=== PATIENT | female | born 1945 | race Caucasian/White ===

== ENCOUNTER 2016-08-22 09:11 | Inpatient (IN) | payer MEDICARE ==
[~2016-08-22 09:11] MED LIST: AMIODARONE HCL200 M1 PO; ARIMIDEX1 M1 PO; ASPIRIN81 M1 PO; CALCIUM CITRAT1 EA25 PO; CLARITIN10 M6 PO; COMBIVENT RESPIM4 G1 INH; COUMADIN3 M1 PO; COUMADIN5 M2 PO; DELTASONE20 MG PO; DOCUSATE SODIU100 M2 PO; FEOSOL325 M1 PO; FISH OIL 11000 MG/CA PO; GLUCOSAMINE CH1 EAC8 PO; HYDROCHLOROTHIA25 M1 PO; HYDROCODONE-CHLO5 M1 PO; LASIX40 M1 PO; LOPRESSOR50 M1 PO; MUCINEX DM ER1 EAC1 PO; MYSOLINE50 M3 PO; NIASPAN500 M1 PO; NYSTATIN100000 UNI SSW; OS-CAL 500+D31 EAC1 PO; PERPHEN AMITRIP PO; PRINIVIL10 M1 PO; PROMETHAZI6.25 MG/3 PO; ROBITUSSIN NIG118 ML PO; SINGULAIR10 M1 PO; SYNTHROID75 MC1 PO; VITAMIN B-12250 MC2 PO; VITAMIN C1000 M1 PO; VITAMIN D35000 UNI2 PO; WELLBUTRIN SR150 M2 PO; ZYLOPRIM100 M1 PO
[2016-08-22] MEDS ORDERED: COUMADIN4 M1 PO (10:27)
[2016-08-22] MEDS ORDERED: ASPIRIN81 M1 PO (10:30)
[2016-08-22] MEDS ORDERED: LACTASE PO (10:31)
[2016-08-22] MEDS ORDERED: MILK OF MAGNESIA PO (10:37)
[2016-08-22] MEDS ORDERED: TYLENOL EXTRA500 M1 PO (10:40)
[2016-08-22] MEDS ORDERED: POTASSIUM CHLO10 ME2 PO (10:40)
[2016-08-22] MEDS ORDERED: TYLENOL325 M2 PO (10:40)
[2016-08-22] MEDS ORDERED: ULTRAM50 M1 PO (10:41)
[2016-08-22 12:32] LABS: C-REACTIVE PROTEIN 1.6 mg/dl (0-0.9)
[2016-08-22 12:45] LABS: PROCALCITONIN 0.07 ng/ml (0.05-0.09)
[2016-08-23 05:05] LABS: BASO % 0.3 % (0-2); EOS % 3.7 % (0-7); EOSINOPHIL ABSOLUTE COUNT 0.2 tho/cmm (0.0-0.7); HCT-HEMATOCRIT 29.9 % (34.0-49.0); HGB-HEMOGLOBIN 9.8 gm/dl (12.0-15.5); IMMATURE GRANULOCYTES ABSOLUTE 0.02 tho/cmm (0-0.03); IMMATURE GRANULOCYTES PERCENT 0.3 % (0-0.3); LYMPH % 14.1 % (20-45); LYMPH ABSOLUTE COUNT 0.9 tho/cmm (0.8-4.5); MCHC MEAN CORPUSCULAR HGB CONC 32.8 % (32.0-36.0); MCV (MEAN CELL VOLUME) 103.8 fl (82.0-96.0); MEAN PLATELET VOLUME 9.9 cmc (9.4-12.4); MONO % 9.3 % (0-12); MONOCYTE ABSOLUTE COUNT 0.6 tho/cmm (0.0-1.2); NEUTROPHIL ABSOLUTE COUNT 4.4 tho/cmm (1.6-8.0); NEUTROPHIL-AUTOMATED 4.4 tho/cmm (1.6-8.0); NEUTROPHILS % 72.3 % (40-80); PLATELET COUNT 158 tho/cmm (150-450); RED BLOOD COUNT 2.88 mil/cmm (4.00-5.20); RED CELL DISTRIBUTION WIDTH 16.4 % (12.4-16.4)
[2016-08-23 05:14] LABS: PROTHROMBIN TIME 23.5 SECONDS (9.0-13.6)
[2016-08-23 05:17] LABS: ANION GAP 10 mmol/L (0-20); BLOOD UREA NITROGEN 51 mg/dl (6-24); CALCIUM 8.5 mg/dl (8.5-10.5); CARBON DIOXIDE-VENOUS 28 mmol/L (22-32); CHLORIDE 101 mmol/l (96-110); CREATININE 1.91 mg/dl (0.50-1.10); GLUCOSE 78 mg/dL (70-110); POTASSIUM 3.3 mmol/L (3.7-5.1); SODIUM 136 mmol/L (135-145); eGFR VALUE FOR BLACK 30 mL/Min
[2016-08-24 03:57] LABS: BASO % 0.8 % (0-2); BASO ABSOLUTE COUNT 0.1 tho/cmm (0.0-0.2); EOS % 4.4 % (0-7); EOSINOPHIL ABSOLUTE COUNT 0.3 tho/cmm (0.0-0.7); HCT-HEMATOCRIT 30.2 % (34.0-49.0); HGB-HEMOGLOBIN 9.6 gm/dl (12.0-15.5); IMMATURE GRANULOCYTES ABSOLUTE 0.03 tho/cmm (0-0.03); IMMATURE GRANULOCYTES PERCENT 0.5 % (0-0.3); LYMPH % 14.8 % (20-45); LYMPH ABSOLUTE COUNT 0.9 tho/cmm (0.8-4.5); MCH (MEAN CORPUSCULAR HGB) 33.4 pg (28.0-32.0); MCHC MEAN CORPUSCULAR HGB CONC 31.8 % (32.0-36.0); MCV (MEAN CELL VOLUME) 105.2 fl (82.0-96.0); MONO % 10.5 % (0-12); MONOCYTE ABSOLUTE COUNT 0.6 tho/cmm (0.0-1.2); NEUTROPHIL ABSOLUTE COUNT 4.2 tho/cmm (1.6-8.0); NEUTROPHIL-AUTOMATED 4.2 tho/cmm (1.6-8.0); PLATELET COUNT 161 tho/cmm (150-450); RED BLOOD COUNT 2.87 mil/cmm (4.00-5.20); RED CELL DISTRIBUTION WIDTH 16.6 % (12.4-16.4); WHITE BLOOD COUNT 6.1 tho/cmm (4.0-10.0)
[2016-08-24 04:24] LABS: BLOOD UREA NITROGEN 57 mg/dl (6-24); CALCIUM 8.7 mg/dl (8.5-10.5); CARBON DIOXIDE-VENOUS 25 mmol/L (22-32); CHLORIDE 103 mmol/l (96-110); GLUCOSE 94 mg/dL (70-110); SODIUM 136 mmol/L (135-145); eGFR VALUE FOR BLACK 22 mL/Min
[2016-08-24 04:40] LABS: INR 3.3 INR (0.9-1.1); PROTHROMBIN TIME 39.4 SECONDS (9.0-13.6)
[2016-08-24 04:52] LABS: ANION GAP 12 mmol/L (0-20); CREATININE 2.48 mg/dl (0.50-1.10); POTASSIUM 4.2 mmol/L (3.7-5.1)
[2016-08-25 05:52] LABS: INR 2.8 INR (0.9-1.1); PROTHROMBIN TIME 33.3 SECONDS (9.0-13.6)
[2016-08-25 05:56] LABS: ANION GAP 11 mmol/L (0-20); BLOOD UREA NITROGEN 50 mg/dl (6-24); CALCIUM 8.9 mg/dl (8.5-10.5); CARBON DIOXIDE-VENOUS 27 mmol/L (22-32); CHLORIDE 103 mmol/l (96-110); GLUCOSE 83 mg/dL (70-110); SODIUM 137 mmol/L (135-145); eGFR VALUE FOR BLACK 28 mL/Min
[2016-08-25] MEDS ORDERED: XARELTO15 M1 PO (10:22)
[2016-08-25] MEDS ORDERED: PRINIVIL5 M1 PO (11:43)
[2016-08-25] MEDS ORDERED: XANAX0.25 M1 PO (11:44)
[2017-02-24] MEDS ORDERED: ARIMIDEX1 M1 PO (21:25)
[2017-02-24] MEDS ORDERED: PLAVIX75 M1 PO (21:26)
[2017-02-24] MEDS ORDERED: PRISTIQ ER25 MG PO (21:27)
[2017-02-24] MEDS ORDERED: SILVADENE20 G1 TOP (21:28)
[2017-02-24] MEDS ORDERED: MAGIC MOUTHWASH PO (21:32)
[2017-02-25] MEDS ORDERED: DILTIAZEM HCL60 M1 PO (15:55)
[2017-02-25] MEDS ORDERED: ASPIRIN EC81 MG PO (15:58)
== END 2016-08-25 14:30 | DRG 309 ==
LOC: PCUA 09:11
PROVIDERS: Family Medicine; Internal Medicine Cardiovascular Disease; ADMIT Internal Medicine
PROC: 02HV33Z Insertion of Infusion Device into Superior Vena Cava, Percutaneous Approach (ICD-10-PCS; 2016-08-22)
PROC: B24BZZ4 Ultrasonography of Heart with Aorta, Transesophageal (ICD-10-PCS; principal; 2016-08-23)
PROC: 5A2204Z Restoration of Cardiac Rhythm, Single (ICD-10-PCS; 2016-08-23)
DX: I48.0 Paroxysmal atrial fibrillation (principal); N17.9 Acute kidney failure, unspecified; N18.4 Chronic kidney disease, stage 4 (severe); I42.9 Cardiomyopathy, unspecified; I27.2 Other secondary pulmonary hypertension; I13.0 Hypertensive heart and chronic kidney disease with heart failure and stage 1 through stage 4 chronic kidney disease, or unspecified chronic kidney disease; I50.9 Heart failure, unspecified; I34.0 Nonrheumatic mitral (valve) insufficiency; I44.7 Left bundle-branch block, unspecified; Z79.01 Long term (current) use of anticoagulants; J98.09 Other diseases of bronchus, not elsewhere classified; R13.10 Dysphagia, unspecified; D50.9 Iron deficiency anemia, unspecified; J98.6 Disorders of diaphragm; I25.10 Atherosclerotic heart disease of native coronary artery without angina pectoris; E03.9 Hypothyroidism, unspecified; Z85.3 Personal history of malignant neoplasm of breast; E78.5 Hyperlipidemia, unspecified; Z88.1 Allergy status to other antibiotic agents; E83.42 Hypomagnesemia; E87.6 Hypokalemia; E66.9 Obesity, unspecified; Z68.38 Body mass index [BMI] 38.0-38.9, adult; Z91.09 Other allergy status, other than to drugs and biological substances
CPT/HCPCS: C1751; J1940; J7040; J7050

== ENCOUNTER 2016-09-28 23:31 | Inpatient (IN) | payer MEDICARE ==
[~2016-09-28 23:31] MED LIST changes: +COUMADIN4 M1 PO; +LACTASE PO; +MILK OF MAGNESIA PO; +POTASSIUM CHLO10 ME2 PO; +PRINIVIL5 M1 PO; +TYLENOL EXTRA500 M1 PO; +TYLENOL325 M2 PO; +ULTRAM50 M1 PO; +XANAX0.25 M1 PO; +XARELTO15 M1 PO
[2016-09-29] MEDS ORDERED: DULCOLAX10 MG PR (01:39)
[2016-09-29] MEDS ORDERED: LOMOTIL 2.5-0.1 EACH PO (01:43)
[2016-09-29] MEDS ORDERED: FEOSOL325 M1 PO (01:44)
[2016-09-29] MEDS ORDERED: CARDIZEM60 M2 PO (01:45)
[2016-09-29 06:06] LABS: URINE BILIRUBIN NEGATIVE (NEG); URINE BLOOD NEGATIVE (NEG); URINE GLUCOSE (UA) NEGATIVE (NEG); URINE KETONE NEGATIVE (NEG); URINE LEUKOCYTE ESTERASE POSITIVE (NEG); URINE NITRITE POSITIVE (NEG); URINE PROTEIN NEGATIVE (NEG)
[2016-09-29 06:07] LABS: URINE APPEARANCE HAZY; URINE COLOR PALE YELLOW
[2016-09-29 06:28] LABS: BASO ABSOLUTE COUNT 0.1 tho/cmm (0.0-0.2); EOS % 7.4 % (0-7); EOSINOPHIL ABSOLUTE COUNT 0.5 tho/cmm (0.0-0.7); HCT-HEMATOCRIT 24.9 % (34.0-49.0); HGB-HEMOGLOBIN 8.2 gm/dl (12.0-15.5); IMMATURE GRANULOCYTES ABSOLUTE 0.04 tho/cmm (0-0.03); IMMATURE GRANULOCYTES PERCENT 0.6 % (0-0.3); LYMPH % 17.4 % (20-45); LYMPH ABSOLUTE COUNT 1.1 tho/cmm (0.8-4.5); MCH (MEAN CORPUSCULAR HGB) 33.2 pg (28.0-32.0); MCHC MEAN CORPUSCULAR HGB CONC 32.9 % (32.0-36.0); MCV (MEAN CELL VOLUME) 100.8 fl (82.0-96.0); MEAN PLATELET VOLUME 8.6 cmc (9.4-12.4); MONO % 7.4 % (0-12); MONOCYTE ABSOLUTE COUNT 0.5 tho/cmm (0.0-1.2); NEUTROPHIL ABSOLUTE COUNT 4.1 tho/cmm (1.6-8.0); NEUTROPHIL-AUTOMATED 4.1 tho/cmm (1.6-8.0); NEUTROPHILS % 66.2 % (40-80); PLATELET COUNT 166 tho/cmm (150-450); RED BLOOD COUNT 2.47 mil/cmm (4.00-5.20); RED CELL DISTRIBUTION WIDTH 19.3 % (12.4-16.4); WHITE BLOOD COUNT 6.2 tho/cmm (4.0-10.0)
[2016-09-29 06:30] LABS: INR 1.5 INR (0.9-1.1); PROTHROMBIN TIME 17.6 SECONDS (9.0-13.6)
[2016-09-29 06:44] LABS: ALB/GLOB RATIO 0.9 (0.8-2.0); ALBUMIN 2.8 g/dl (3.5-5.0); ALKALINE PHOSPHATASE 58 U/L (33-138); ALT/SGPT 71 U/L (12-78); ANION GAP 13 mmol/L (0-20); AST/SGOT 68 U/L (10-40); BILIRUBIN,TOTAL 0.3 mg/dl (0-1.5); BLOOD UREA NITROGEN 82 mg/dl (6-24); CALCIUM 8.7 mg/dl (8.5-10.5); CARBON DIOXIDE-VENOUS 24 mmol/L (22-32); CHLORIDE 108 mmol/l (96-110); CREATININE 2.29 mg/dl (0.50-1.10); GLUCOSE 95 mg/dL (70-110); MAGNESIUM 2.3 mg/dl (1.8-2.6); PHOSPHOROUS 3.6 mg/dl (2.5-4.9); SODIUM 141 mmol/L (135-145); eGFR VALUE FOR BLACK 24 mL/Min
[2016-09-29 06:45] LABS: C-REACTIVE PROTEIN 0.8 mg/dl (0-0.9)
[2016-09-29 07:02] LABS: URINE BACTERIA 4+; URINE EPITHELIAL CELLS 0 /[HPF] (0-10); URINE RBC 0-1 /[HPF] (0-5)
[2016-09-29 07:11] LABS: ESR-ERYTHROCYTE SED RATE 58 mm/hr (0-30)
[2016-09-29 13:50] LABS: URINE BILIRUBIN NEGATIVE (NEG); URINE BLOOD NEGATIVE (NEG); URINE GLUCOSE (UA) NEGATIVE (NEG); URINE KETONE NEGATIVE (NEG); URINE LEUKOCYTE ESTERASE POSITIVE (NEG); URINE NITRITE POSITIVE (NEG); URINE PROTEIN NEGATIVE (NEG)
[2016-09-29 13:52] LABS: URINE APPEARANCE HAZY; URINE COLOR YELLOW
[2016-09-29 13:55] LABS: URINE BACTERIA 4+; URINE EPITHELIAL CELLS 0 /[HPF] (0-10); URINE RBC 0 /[HPF] (0-5)
[2016-09-29 14:11] LABS: IRON 82 ug/dl (37-170); IRON BINDING CAPACITY 357 ug/dl (250-450)
[2016-09-29 15:10] LABS: FOLATE (FOLIC ACID) 17.1 ng/ml (3.20-20.00)
[2016-09-30 05:52] LABS: BASO % 0.9 % (0-2); BASO ABSOLUTE COUNT 0.1 tho/cmm (0.0-0.2); EOS % 6.3 % (0-7); EOSINOPHIL ABSOLUTE COUNT 0.4 tho/cmm (0.0-0.7); HCT-HEMATOCRIT 24.7 % (34.0-49.0); IMMATURE GRANULOCYTES ABSOLUTE 0.03 tho/cmm (0-0.03); IMMATURE GRANULOCYTES PERCENT 0.5 % (0-0.3); LYMPH ABSOLUTE COUNT 1.2 tho/cmm (0.8-4.5); MCH (MEAN CORPUSCULAR HGB) 33.3 pg (28.0-32.0); MCHC MEAN CORPUSCULAR HGB CONC 32.4 % (32.0-36.0); MCV (MEAN CELL VOLUME) 102.9 fl (82.0-96.0); MEAN PLATELET VOLUME 8.6 cmc (9.4-12.4); MONOCYTE ABSOLUTE COUNT 0.5 tho/cmm (0.0-1.2); NEUTROPHIL ABSOLUTE COUNT 3.7 tho/cmm (1.6-8.0); NEUTROPHIL-AUTOMATED 3.7 tho/cmm (1.6-8.0); NEUTROPHILS % 63.3 % (40-80); PLATELET COUNT 153 tho/cmm (150-450); RED CELL DISTRIBUTION WIDTH 20.8 % (12.4-16.4); WHITE BLOOD COUNT 5.8 tho/cmm (4.0-10.0)
[2016-09-30 06:00] LABS: ANION GAP 14 mmol/L (0-20); BLOOD UREA NITROGEN 51 mg/dl (6-24); CALCIUM 8.5 mg/dl (8.5-10.5); CARBON DIOXIDE-VENOUS 21 mmol/L (22-32); CHLORIDE 115 mmol/l (96-110); CREATININE 1.79 mg/dl (0.50-1.10); GLUCOSE 98 mg/dL (70-110); MAGNESIUM 2.4 mg/dl (1.8-2.6); POTASSIUM 4.1 mmol/L (3.7-5.1); SODIUM 146 mmol/L (135-145); eGFR VALUE FOR BLACK 32 mL/Min
[2016-10-01 05:41] LABS: ANION GAP 13 mmol/L (0-20); BLOOD UREA NITROGEN 31 mg/dl (6-24); CALCIUM 8.4 mg/dl (8.5-10.5); CARBON DIOXIDE-VENOUS 21 mmol/L (22-32); CHLORIDE 114 mmol/l (96-110); CREATININE 1.57 mg/dl (0.50-1.10); GLUCOSE 93 mg/dL (70-110); SODIUM 144 mmol/L (135-145); eGFR VALUE FOR BLACK 38 mL/Min
[2016-10-01] MEDS ORDERED: PROTONIX40 M2 PO (11:21)
[2017-02-24] MEDS ORDERED: ARIMIDEX1 M1 PO (21:25)
[2017-02-24] MEDS ORDERED: PLAVIX75 M1 PO (21:26)
[2017-02-24] MEDS ORDERED: PRISTIQ ER25 MG PO (21:27)
[2017-02-24] MEDS ORDERED: SILVADENE20 G1 TOP (21:28)
[2017-02-24] MEDS ORDERED: MAGIC MOUTHWASH PO (21:32)
[2017-02-25] MEDS ORDERED: DILTIAZEM HCL60 M1 PO (15:55)
[2017-02-25] MEDS ORDERED: ASPIRIN EC81 MG PO (15:58)
== END 2016-10-01 13:50 | DRG 683 ==
LOC: PCUA 23:31
PROVIDERS: Internal Medicine Gastroenterology; Internal Medicine Nephrology; ADMIT Internal Medicine
PROC: 0DB68ZX Excision of Stomach, Via Natural or Artificial Opening Endoscopic, Diagnostic (ICD-10-PCS; principal; 2016-09-29)
PROC: 30233N1 Transfusion of Nonautologous Red Blood Cells into Peripheral Vein, Percutaneous Approach (ICD-10-PCS; 2016-09-29)
PROC: 0DBK8ZX Excision of Ascending Colon, Via Natural or Artificial Opening Endoscopic, Diagnostic (ICD-10-PCS; 2016-09-30)
DX: N17.9 Acute kidney failure, unspecified (principal); I42.9 Cardiomyopathy, unspecified; I50.32 Chronic diastolic (congestive) heart failure; K92.2 Gastrointestinal hemorrhage, unspecified; I48.2 Chronic atrial fibrillation; E03.9 Hypothyroidism, unspecified; E78.5 Hyperlipidemia, unspecified; E55.9 Vitamin D deficiency, unspecified; I25.10 Atherosclerotic heart disease of native coronary artery without angina pectoris; I34.0 Nonrheumatic mitral (valve) insufficiency; N18.3 Chronic kidney disease, stage 3 (moderate); D50.9 Iron deficiency anemia, unspecified; E73.9 Lactose intolerance, unspecified; F32.9 Major depressive disorder, single episode, unspecified; Z79.01 Long term (current) use of anticoagulants; Z85.3 Personal history of malignant neoplasm of breast; Z92.3 Personal history of irradiation; Z91.81 History of falling; I12.9 Hypertensive chronic kidney disease with stage 1 through stage 4 chronic kidney disease, or unspecified chronic kidney disease; K29.70 Gastritis, unspecified, without bleeding
CPT/HCPCS: C9113; J2060; J7030; P9016